=== PATIENT | female | born 1970 | race Caucasian/White ===

== ENCOUNTER → 2017-03-08 | Outpatient (REF) | payer OTHER ==
[~2017-03-08] MED LIST: IBUP600T PO; LYRI150C PO; MELOPOW PO; MILKSUS PO; SENO8.6T5 PO; TAPENTADOL 50 MG PO; VICO5TAB PO
== END ==
LOC: M LAB REF 16:08
PROVIDERS: ATTEND Physician Assistant
DX: R30.0 Dysuria (principal)

== ENCOUNTER 2024-03-30 12:56 | Emergency (ER) | payer OTHER ==
[~2024-03-30] VITALS: Ht 165.1 cm; Wt 72.7 kg
[2024-03-30] MEDS ORDERED: OMEP40CA4 PO (13:23)
[2024-03-30] MEDS ORDERED: PRAM0.252 PO (13:23)
[2024-03-30] MEDS ORDERED: TIZA4CAP PO (13:23)
[2024-03-30] MEDS ORDERED: NORT50CA PO (13:23)
[2024-03-30] MEDS ORDERED: VENL75CA47 PO (13:23)
[2024-03-30] MEDS ORDERED: VENL150C43 PO (13:23)
[2024-03-30] MEDS: diazePAM 10MG/2ML SYRINGE IV ONE ×2 (14:13→18:55)
[2024-03-30] MEDS: MORPHINE 4 MG/ML 1ML VIAL IV ONE ×2 (14:13→18:11)
[2024-03-30 14:43] LABS: BASO # 0.1 10^3/uL (0.0-0.2); BASO % 0.8 % (0.0-1.0); EOS # 0.4 10^3/uL (0.0-0.5); HEMATOCRIT 40.9 % (36.0-47.0); HEMOGLOBIN 13.5 g/dl (12.0-15.5); LYMPH # 1.8 10^3/uL (1.5-5.0); MEAN CORPUSCULAR HEMOGLOBIN 33.8 pg (27.0-33.0); MEAN CORPUSCULAR VOLUME 102.5 fl (80.0-96.0); MONO # 0.3 10^3/uL (0.0-0.8); MONO % 3.2 % (2.0-8.0); NEUTROPHILS # 7.5 10^3/uL (1.5-8.5); NEUTROPHILS % 73.6 % (36.0-66.0); PLATELET COUNT, AUTOMATED 316 10^3/uL (150-450); RED BLOOD COUNT 3.99 10^6/uL (4.00-5.40); WHITE BLOOD COUNT 10.1 10^3/uL (4.0-10.0)
[2024-03-30 14:54] LABS: INR 0.99; PROTHROMBIN TIME 12.8 SECONDS (12.5-14.5)
[2024-03-30 15:02] LABS: BLOOD UREA NITROGEN 9 MG/DL (9-23); CALCIUM LEVEL 9.2 MG/DL (8.5-10.1); CARBON DIOXIDE LEVEL 26 MMOL/L (20-31); CHLORIDE LEVEL 108 MMOL/L (98-107); CREATININE FOR GFR 0.62 MG/DL (0.55-1.30); GLOMERULAR FILTRATION RATE > 60.0 (>51); GLUCOSE, FASTING 79 MG/DL (60-100); POTASSIUM SERUM 3.5 MMOL/L (3.5-5.1); SODIUM LEVEL 140 MMOL/L (136-145)
[2024-03-30] MEDS: ONDANSETRON 4MG 2ML VIAL IV ONE ×2 (15:12→21:39)
[2024-03-30] MEDS: carisoprodoL 350 MG TAB PO ONE (15:48)
[2024-03-30] MEDS: MORPHINE 4 MG/ML 1ML VIAL IV PRN (21:25)
[2024-03-30 22:20] VITALS: BP 124/88; TEMP 98.8; O2SAT 94
== END 2024-03-30 22:43 | disposition short-term general hospital (02) ==
LOC: M ED 12:56 → EDBD 12:56 → M ED 22:43
DX: M54.2 Cervicalgia (principal); W01.190A Fall on same level from slipping, tripping and stumbling with subsequent striking against furniture, initial encounter; M54.50 Low back pain, unspecified; K21.9 Gastro-esophageal reflux disease without esophagitis; Z88.5 Allergy status to narcotic agent; Z79.899 Other long term (current) drug therapy; Z79.82 Long term (current) use of aspirin
CPT/HCPCS: 72125; 72141; 80048; 85025; 85610; 96374; 96375; 96376; 99285; J2405; J3360